=== PATIENT | male | born 1930 | race Caucasian/White ===

== ENCOUNTER → 2018-04-22 13:33 | Outpatient (CLI) | payer MEDICARE, OTHER ==
[2012-05-31 08:27] VITALS: BMI 29.2
== END | disposition home or self-care (01) ==
LOC: D.CT 13:33
DX: R51 Headache (principal)

== ENCOUNTER 2018-08-28 03:01 | Emergency (ER) | payer MEDICARE, OTHER ==
[~2018-08-28] VITALS: Ht 180.3 cm; Wt 99.5 kg
[2018-08-28 03:07] VITALS: Ht 180.3 cm; Wt 99.5 kg
[2018-08-28] MEDS ORDERED: BAYER CHEWABLE81 MG PO (03:09)
[2018-08-28] MEDS ORDERED: HYDROCHLOROTH12.5 M1 PO (03:09)
[2018-08-28] MEDS ORDERED: LOPRESSOR25 MG PO (03:10)
[2018-08-28] MEDS ORDERED: OXYBUTYNIN CHLOR5 MG PO (03:10)
[2018-08-28] MEDS ORDERED: PRINIVIL20 MG (03:10)
[2018-08-28] MEDS ORDERED: LASIX40 MG PO (03:10)
[2018-08-28] MEDS ORDERED: NORVASC5 MG PO (03:11)
[2018-08-28] MEDS ORDERED: K-TAB10 MEQ PO (03:11)
[2018-08-28] MEDS ORDERED: COUMADIN5 MG PO (03:12)
[2018-08-28] MEDS ORDERED: COUMADIN7.5 MG (03:12)
[2018-08-28 04:14] VITALS: BP 169/94
== END 2018-08-28 04:15 | disposition home or self-care (01) ==
LOC: D.ER 03:01
DX: S80.02XA Contusion of left knee, initial encounter (principal); W18.30XA Fall on same level, unspecified, initial encounter; Y93.89 Activity, other specified; Y92.019 Unspecified place in single-family (private) house as the place of occurrence of the external cause; I10 Essential (primary) hypertension; Z85.828 Personal history of other malignant neoplasm of skin